=== PATIENT | female | born 1975 | race Caucasian/White ===

== ENCOUNTER 2016-06-16 14:38 | Emergency (ER) | payer BC ==
[2016-06-16] MEDS ORDERED: ASPIRIN 81 MG CHEW TAB ONE (15:43)
[2016-06-16] MEDS ORDERED: SODIUM CHLORIDE 0.9% 1,000 ML ONE (17:49)
[2016-06-16] MEDS ORDERED: ONDANSETRON 4 MG VIAL ONE ×2 (17:49→19:31)
[2016-06-16] MEDS ORDERED: NITROGLYCERIN SL 0.4 MG TAB SL ONE (18:22)
[2016-06-16] MEDS ORDERED: KETOROLAC 30 MG/ML VIAL ONE (19:31)
== END 2016-06-16 19:46 | disposition home or self-care (01) ==
LOC: ER 14:38
CPT/HCPCS: 36415; 71010; 80053; 82550; 83735; 84484; 85025; 85610; 85730; 93005; 96361; 96374; 96375; 96376